=== PATIENT | female | born 1935 | race Caucasian/White ===

== ENCOUNTER 2018-11-21 18:15 | Emergency (ER) | payer BC ==
[~2018-11-21] VITALS: Ht 167.6 cm; Wt 70.0 kg
[~2018-11-21 18:15] MED LIST: ASPI-817 PO; ATOR40TA68 PO; DILT120T PO; DOCU-144 PO; FLUC200T52 PO; LOSA50TA2 PO; NITR100C6 PO; PANT40TA3 PO; RIVA15TA PO; RIVA3CAP3 PO; RSP.5T PO
[2018-11-21 18:20] VITALS: Ht 167.6 cm; Wt 70.0 kg
--- NOTE | 2018-11-21 18:40 | ERD ---
ER Documentation Chief Complaint Chief Complaint BIB [employer] FOR EVAL OF GROUND LEVEL FALL. HIT FOREHEAD ON [place] HPI 82-year-old female with past medical history, based on records, of dementia, AFib on oral anticoagulants presenting after a ground-level fall. The patient has dementia and is unable to explain to me how or why she fell. Reports that was given by EMS was not helpful. Currently she is complaining of a mild headache, mostly around her forehead. She denies any loss of consciousness. No nausea or vomiting. No vision disturbance, focal weakness or numbness. She denies any other complaints. Denying any chest pain, shortness of breath, dizziness, abdominal pain or any extremity pain. ROS All systems reviewed and are negative except as per history of present illness. Medications Home Meds Active Scripts Nitrofurantoin Monohyd Macrocr* (Macrobid*) 100 Mg Capsr, 100 MG PO BID for 7 Days, CAP Prov:AMIRA LUNDBERG MD 11/21/18 Fluconazole* (Fluconazole*) 200 Mg Tablet, 200 MG PO DAILY for 7 Days, #7 TAB Prov:APOLINAR JUAREZ NP 08/08/18 Nitrofurantoin Monohyd Macrocr (Macrobid) 100 Mg Capsr, 100 MG PO BID for 3 Days, #6 CAP Prov:APOLINAR JUAREZ V. [employer] 08/08/18 Reported Medications Docusate Sodium* (Colace*) 100 Mg Capsule, 100 MG PO DAILY, #30 CAP 08/06/18 Atorvastatin* (Atorvastatin*) 40 Mg Tablet, 40 MG PO QHS, #30 TAB 08/06/18 Aspirin* (Aspirin* EC) 81 Mg Tablet.dr, 81 MG PO DAILY, TAB 08/06/18 Losartan Potassium* (Cozaar*) 50 Mg Tablet, 50 MG PO DAILY, #30 TAB 08/06/18 Diltiazem Hcl* (Cardizem LA*) 120 Mg Tab.sr.24h, 120 MG PO DAILY, #30 TAB.SA 08/06/18 Risperidone* (Risperdal*) 0.5 Mg Tablet, 0.5 MG PO DAILY, TAB 08/06/18 Rivaroxaban* (Xarelto*) 15 Mg Tablet, 15 MG PO DAILY, TAB 08/06/18 Rivastigmine Tartrate* (Rivastigmine Tartrate*) 3 Mg Capsule, 3 MG PO DAILY, CAP 08/06/18 Pantoprazole* (Protonix*) 40 Mg Tablet.dr, 40 MG PO DAILY, TAB 08/06/18 Allergies Allergies: Coded Allergies: No Known Allergy (Unverified , 08/05/18) PMhx/Soc History of Surgery: Yes (MELISSA. HIP REPLACEMENT, , APPENDECTOMY) Anesthesia Reaction: No Hx Neurological Disorder: Yes (STROKE, senile dementia, ) Hx Respiratory Disorders: Yes (COPD) Hx Cardiac Disorders: Yes (CAD, AFIB, PACEMAKER) Hx Psychiatric Problems: Yes (Psychotic disorder NOS) Hx Miscellaneous Medical Probl: Yes (Afib, COPD) Hx Alcohol Use: No Hx Substance Use: No Hx Tobacco Use: No Smoking Status: Never smoker FmHx Unable to obtain Physical Exam Vitals Vital Signs Date Temp Pulse Resp B/P (MAP) Pulse Ox O2 O2 Flow FiO2 Time Delivery Rate 11/21/18 93 18 181/84 100 Room Air 22:14 (116) 11/21/18 91 158/70 100 Room Air 21:24 (99) 11/21/18 97.9 80 18 220/105 99 18:20 (143) Physical Exam Const: No acute distress Head: Hematoma with skin tear of the middle forehead Eyes: Normal Conjunctiva, PERRLA, EOMI,no nystagmus ENT: Facial bones nontender to palpation. No periorbital bruising. No subconjunctival hemorrhage. No septal hematoma. No epistaxis. Normal External Ears, Nose and Mouth. Neck: Full range of motion. No meningismus. No C-spine tenderness. Clavicles nontender Chest wall: no evidence of trauma. Completely nontender to palpation. No crepitus Resp: Clear to auscultation bilaterally Cardio: Irregularly irregular rhythm, normal rate, no murmurs Abd: Soft, non tender, non distended. Normal bowel sounds Skin: No petechiae or rashes Back: No midline or flank tenderness Pelvis: Stable, nontender, full range of motion at the hips without complaints of minimal pain . Ext: No cyanosis, or edema. No deformities noted. Left forearm with old hematoma. Otherwise all extremities normal to inspection and palpation. Neur: Awake and alert, oriented to self and place, normal speech, no facial asymmetry, cranial nerves intact, strength and sensations intact in all 4 extremities. Psych: Normal Mood and Affect Result Diagram: 11/21/18195111/21/181951 Results 24 hrs Laboratory Tests Test 11/21/18 19:52 White Blood Count 10.5 10^3/ul Red Blood Count 3.81 10^6/ul Hemoglobin 10.9 g/dl Hematocrit 35.5 % Mean Corpuscular Volume 93.2 fl Mean Corpuscular Hemoglobin 28.6 pg Mean Corpuscular Hemoglobin Concent 30.7 g/dl Red Cell Distribution Width 13.5 % Platelet Count 277 10^3/UL Mean Platelet Volume 10.1 fl Immature Granulocytes % 0.300 % Neutrophils % 74.7 % Lymphocytes % 14.5 % Monocytes % 9.4 % Eosinophils % 0.9 % Basophils % 0.2 % Nucleated Red Blood Cells % 0.0 /100WBC Immature Granulocytes # 0.030 10^3/ul Neutrophils # 7.9 10^3/ul Lymphocytes # 1.5 10^3/ul Monocytes # 1.0 10^3/ul Eosinophils # 0.1 10^3/ul Basophils # 0.0 10^3/ul Nucleated Red Blood Cells # 0.0 10^3/ul Prothrombin Time 27.7 Sec Prothrombin Time Ratio 2.2 INR International Normalized Ratio 2.58 Activated Partial Thromboplast Time 53.0 Sec Urine Color YELLOW Urine Clarity CLOUDY Urine pH 6.0 Urine Specific [place] 1.012 Urine Ketones NEGATIVE mg/dL Urine Nitrite NEGATIVE mg/dL Urine Bilirubin NEGATIVE mg/dL Urine Urobilinogen 1+ mg/dL Urine Leukocyte Esterase 3+ David/ul Urine Microscopic RBC 2 /HPF Urine Microscopic WBC 42 /HPF Urine Squamous Epithelial Cells MANY /HPF Urine Bacteria FEW /HPF Urine Mucus FEW /HPF Urine Hemoglobin NEGATIVE mg/dL Urine Glucose NEGATIVE mg/dL Urine Total Protein NEGATIVE mg/dl Sodium Level 142 mmol/L Potassium Level 3.3 mmol/L Chloride Level 105 mmol/L Carbon Dioxide Level 29 mmol/L Anion Gap 8 Blood Urea Nitrogen 11 mg/dl Creatinine 0.80 mg/dl Est Glomerular Filtrat Rate mL/min mL/min Glucose Level 114 mg/dl Calcium Level 8.9 mg/dl Troponin I < 0.012 ng/ml Current Medications Medications Dose Sig/Dena Start Time Status Last (Trade) Ordered Route PRN Stop Time Admin Dose Reason Admin Ceftriaxone 50 ml @ ONCE ONCE 11/21/18 DC 11/21/18 Sodium 100 mls/hr IVPB 21:00 21:14 11/21/18 21:29 Procedures/MDM EMERGENT LABS AND DIAGNOSTIC STUDIES: Lab Results above were reviewed and interpreted by me. CBC: Mild anemia, no evidence of infection BMP: Borderline hypokalemia. No evidence of clinically significant electrolyte abnormality, acidosis, renal failure, hypoglycemia Troponin within normal limits, not indicative of cardiac ischemia Coags elevated, consistent with coagulopathy UA: Evidence of infection 12-lead EKG was interpreted by Daniel Lundberg MD: Demand pacemaker, atrial fibrillation with occasional paced complexes Rightward axis Normal intervals No acute ST or T wave changes suggestive of acute ischemia or STEMI. Radiology Results as interpreted by Radiology below were reviewed by Ivette Lundberg MD: Chest x-ray: Blunting of the left costophrenic angle could represent mild atelectasis, scarring or small pleural effusion, unchanged. Aortic atherosclerosis. X-ray pelvis shows no acute abnormalities Brain CT shows no acute traumatic abnormalities or any evidence of intracranial bleeding or stroke CT C-spine shows no acute cervical spine traumatic abnormalities. Small foci of air noted around the esophagus Initial Nursing notes reviewed. Previous Medical Records requested via the Electronic Health Record. EMERGENCY DEPARTMENT COURSE / MEDICAL DECISION MAKING: Patient is presenting after a ground-level fall with evidence of head injury. Given she is on anticoagulants, although her neurologic exam was normal, CT was done to evaluate for possible intracranial hemorrhage. CT did not show any acute abnormalities. C-spine imaging showed no acute C-spine abnormalities. However there was a small foci of air possibly noted around the esophagus. However the patient is not having any symptoms of chest pain, difficulty swallowing, vomiting or any other chest or throat complaints. I do not suspect that there is an esophageal perforation and I do not feel that any further work- up for this is necessary at this time. Patient was found to have a UTI. She received IV antibiotics while here. Her wound did not require closure, it was cleaned and dressed. I feel the patient stable for discharge back to her facility. Prescription for Macrobid given. Discharge paperwork with return precautions discussed. Patient's blood pressure was elevated (>120/80) but appears stable without evidence of hypertensive emergency or urgency. The patient was counseled about the risks of hypertension and urged to pursue outpatient monitoring and therapy within a week with their primary care physician. Departure Diagnosis: Primary Impression: Fall Encounter type: initial encounter Qualified Codes: W19.XXXA - Unspecified fall, initial encounter Additional Impressions: UTI (urinary tract infection) Urinary tract infection type: acute cystitis Hematuria presence: without hematuria Qualified Codes: N30.00 - Acute cystitis without hematuria Head injury Encounter type: initial encounter Qualified Codes: S09.90XA - Unspecified injury of head, initial encounter Traumatic hematoma of forehead Encounter type: initial encounter Qualified Codes: S00.83XA - Contusion of other part of head, initial encounter Condition: Stable AMIRA LUNDBERG MD November 21, 2018 18:40
[2018-11-21] MEDS ORDERED: CEFTRIAXONE 1 GM/50 ML (PMX) 50 ML IVPB ONE (21:00)
[2018-11-21 22:14] VITALS: BP 181/84; PULSE 93; RESP 18
[2018-11-21] MEDS ORDERED: NITR-58 PO (22:19)
== END 2018-11-21 22:22 | disposition home or self-care (01) ==
LOC: E/R 18:15
DX: S00.83XA Contusion of other part of head, initial encounter (principal); J44.9 Chronic obstructive pulmonary disease, unspecified; I25.10 Atherosclerotic heart disease of native coronary artery without angina pectoris; N30.00 Acute cystitis without hematuria; W18.39XA Other fall on same level, initial encounter; Y92.9 Unspecified place or not applicable; Z79.82 Long term (current) use of aspirin; Z95.0 Presence of cardiac pacemaker; Z96.643 Presence of artificial hip joint, bilateral
CPT/HCPCS: 70450; 71045; 72125; 72170; 80048; 81001; 84484; 85025; 85610; 85730; 93005; 96374; 99285; J0696